=== PATIENT | female | born 1990 | race African-American/Black ===

== ENCOUNTER 2016-10-12 17:23 | Inpatient (IN) ==
[2016-10-12] MEDS ORDERED: DINOPROSTONE VAG GEL 10 MG SYRINGE VAG ONE ×2 (17:42→18:00)
[2016-10-12] MEDS ORDERED: BUTORPHANOL 2 MG/ML VIAL IV PRN (17:58)
[2016-10-12] MEDS ORDERED: MEPERIDINE 50 MG/1 ML VIAL IV PRN (17:58)
[2016-10-12] MEDS: LACTATED RINGERS 1,000 ML IV SCH ×2 (18:15→23:40)
--- NOTE | 2016-10-12 18:45 | OB/GYN History & Physical ---
History of Present Illness Chief complaint: Preeclampsia History of present illness: Ms. Mireles is a 25 year old female 25-year-old 1 para 0 who presented to clinic today with blood pressure with diastolics over 100. Since August of this patient's blood pressure diastolic has been creeping to 96 and 100 diastolic. Today's visit she was 160s over 96 and 158/104 in the office. In light of these findings she was admitted for induction of labor. She is approximately 2 cm dilated 60% at a -2 station vertex. heart tones are category 1. She will be receiving prostaglandin gel risks benefits were thoroughly discussed she is in full agreement. Home Medications Medication Instructions Recorded Confirmed Type Labetalol Tab [Trandate Tab] 200 mg PO BID 06/14/16 10/12/16 History Multivitamin () [ 1 tablet PO DAILY 06/14/16 10/12/16 History Vitamin] Ferrous Sulfate Tab [Feosol 1 tablet PO BEDTIME 09/27/16 10/12/16 History Original Tab] Folic Acid Tab 1 tablet PO DAILY 09/27/16 10/12/16 History Allergies Allergy/AdvReac Type Severity Reaction Status Date / Time No Known Allergies Allergy Verified 10/04/16 09:57 Medical,Surgical,& Family Hx - Medical History Cardio: History of: Hypertension Reproductive: History of: Abnormal Pap Smear (lsil) - Surgical History Thoracic Surgeries: Patient denies;: Organ Transplant - Family History Family History: Reports;: Family Cancer (mggm colon), Family Diabetes (mgm), Family Hypertension (mother mgm) - Social History Smoking Status: Never smoker Frequency of Alcohol Use: None Type of Drug Use: None 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 - Constitutional General appearance: no acute distress - Antepartum / Post Antepartum Exam Cervix - Dilatation: 2 cm Effacement: 60% Station: -2 - Head Head exam: Present: normal inspection - Eye Eye exam: Present: EOMI Pupils: Present: JASIEL - ENT ENT exam: Present: normal exam - Neck Neck exam: Present: normal inspection - Respiratory Respiratory exam: Present: clear to auscultation bilaterally - Breast Breasts: as per HPI Menstruation: as per HPI - Cardiovascular Cardiovascular exam: Present: regular rate and rhythm - GI/Abdominal GI/Abdominal exam: Present: normal bowel sounds - Extremities Exam Extremities exam: Present: normal inspection - Back Exam Back exam: Present: normal inspection - Psychiatric Psychiatric exam: Present: normal affect - Skin Skin exam: Present: normal color Assessment and Plan (1) Preeclampsia Status: Acute Assessment and plan: Blood pressure has not been controlled with bedrest and also on labetalol at 200 mg twice daily. Patient will be admitted prostaglandin gel be administered and epidural will be administered at appropriate place and time. Risks benefits thoroughly discussed as well as the nursery was notified. Current Visit: Yes
[2016-10-12 18:57] LABS: Basophils % 0.2 % (0.0-0.8); Eosinophils # 0.1 10*3/uL (0.0-0.87); Eosinophils % 0.7 % (0.00-10.9); Hematocrit 38.5 VOL% (35.7-47.0); Hemoglobin 12.6 GM/DL (12.0-16.0); Immature Granulocytes % 1.3 %; Immature Granulocytes Absolute 0.13 #; Lymphocytes # 1.5 10*3/uL (1.4-4.0); Lymphocytes % 15.2 % (21.3-54.2); Mean Corpuscular HGB Conc 32.7 GM/DL (32-36); Mean Corpuscular Hemoglobin 27 PG (27-34); Mean Corpuscular Volume 82.6 FL (87-102); Mean Platelet Volume 12.2 FL (9.6-12.0); Monocytes # 0.8 10*3/uL (0.11-0.8); Monocytes % 7.9 % (1.7-12.7); Neutrophils # 7.4 10*3/uL (1.4-7.4); Neutrophils % 74.7 % (38.7-73.9); Platelet Count 209 T/CUMM (130-400); Red Blood Count 4.66 MC/CUMM (3.8-5.5); Red Cell Distribution Width 15.6 % (9.3-17.3); White Blood Count 9.9 T/CUMM (4-12)
[2016-10-12 19:22] LABS: Alanine Aminotransferase 20 U/L (13-56); Albumin 2.9 G/DL (3.4-5.0); Alkaline Phosphatase 126 U/L (45-117); Aspartate Amino Transferase 18 U/L (0-37); Bilirubin,Total < 0.39 MG/DL (0.2-1.0); Blood Urea Nitrogen 6 MG/DL (7-18); Calcium 9.5 MG/DL (8.5-10.1); Glucose 87 MG/DL (74-106); Osmolality,Calculated 271.7 MOS/KG (273-304); Sodium 138 MMOL/L (136-145); Total Protein 7.4 G/DL (6.4-8.3); Uric Acid 3.4 MG/DL (2.6-6.0)
[2016-10-12 19:25] LABS: PT Patient Result 10.6 SECS; Partial Thromboplastin Time 27.4 SECS (0-40)
[2016-10-12] MEDS: LABETALOL 200 MG TABLET PO SCH (21:40)
[2016-10-13] MEDS: LACTATED RINGERS 1,000 ML IV SCH ×2 (02:16→09:36)
[2016-10-13] MEDS ORDERED: OXYTOCIN/LR 20 UNIT/1,000 ML BAG IV SCH (03:30)
--- NOTE | 2016-10-13 08:55 | Event Note ---
0850: AROM with clear fluids noted. Vaginal exam: The patient is 3-4 cm dilated 70% effaced and the vertex is presenting at a -2 station.
[2016-10-13] MEDS: LABETALOL 200 MG TABLET PO SCH (09:11)
[2016-10-13] MEDS ORDERED: fentaNYL 2 MCG/ROPIV 0.2% EPID 150 ML EPIDURAL SCH (10:24)
[2016-10-13] MEDS ORDERED: FAMOTIDINE 20 MG/2 ML VIAL IV ONE (10:24)
[2016-10-13] MEDS ORDERED: CITRIC ACID/SODIUM CITRATE 30 ML UDCUP PO ONE (10:24)
[2016-10-13] MEDS ORDERED: ePHEDrine 50 MG/ML AMP IV PRN (10:24)
[2016-10-13] MEDS ORDERED: hydrOXYzine HCL 25 MG/1 ML VIAL IM PRN (10:24)
[2016-10-13] MEDS ORDERED: diphenhydrAMINE 50 MG/1 ML VIAL IV PRN (10:24)
[2016-10-13] MEDS ORDERED: hydrALAZINE 20 MG/1 ML VIAL IV PRN (12:27)
--- NOTE | 2016-10-13 12:27 | Event Note ---
Pelvic exam demonstrated 6-7 cm 60-70% effaced at a 0 station. heart tones are category 1 no evidence of variables relates at this point time. We will continue with present therapy anticipate delivery vaginally. Blood pressures 150s over 95 she did receive a labetalol ball this morning we will give her 10 of Apresoline at this time.
[2016-10-13 12:49] LABS: Apearance,Urine CLEAR (Clear); Bacteria,Urine Occasional /HPF (Few); Bilirubin,Urine Negative (Negative); Blood, Urine Negative (Negative); Glucose,Urine (UA) Negative (Negative); Ketones,Urine 5 mg/dL (Negative); Mucus,Urine Occasional /LPF (Occasional); Nitrite,Urine Negative (Negative); Protein,Urine Negative; RBC,Urine <1 /HPF (0-4); Squamous Epithelial Cell,Urine Occasional /HPF (0-10); Urine Color Yellow (Yellow); Urine Specific Gravity 1.009 (1.001-1.035); Urine Urobilinogen < 2.0 EU/DL (0.2-1.0); WBC,Urine 1 /HPF (0-6)
--- NOTE | 2016-10-13 14:16 | Event Note ---
HPI: Patient presented for induction of labor due to preeclampsia. The risk and benefits were thoroughly discussed with the patient significant other, plan of care was discussed with Dr. Casas and all parties were in in agreement with plan. Stage I: The patient was admitted and she received Prostin gel per protocol. She was eventually started on IV Pitocin per protocol and she progressed in labor with a CAT 1 tracing. The patient also received medicines for her blood pressure. She received an epidural for pain control. Artificial rupture membranes was performed with clear fluid noted. An IUPC catheter was inserted without difficulty. The patient continued to progress with no complications. Stage II: The patient was complete and instructed to push. She pushed for approximately 10 minutes after which time the infant's head was delivered, the mouth nose suctioned on the perineum. The remainder of the was delivered at 1401. A viable male infant was noted. Apgars were 8 at 1 minute and 9 at 5 minutes. weight was 7 pounds and 4 oz. The infant was placed on the mom's abdomen for skin to skin bonding. Stage III: A spontaneous delivery of a Tim placenta with a three-vessel cord noted. The placenta was further examined. Grossly intact. The vagina cervix was inspected with a left labial abscess noted. The abscess was incised and drained and a culture was sent to pathology for further examination. Epidural anesthesia remain in effect during the I & D. The patient tolerated the procedure well. Estimated blood loss was approximately 125 cc. At the time of dictation mother and baby are both in stable condition.
[2016-10-13] MEDS ORDERED: ACETAMINOPHEN/CODEINE 300-30 MG TABLET PO PRN (14:18)
[2016-10-13] MEDS ORDERED: BENZOCAINE 20%/MENTHOL 0.5% SPRAY 56 GM CAN TOP PRN (18:20)
[2016-10-13] MEDS ORDERED: BISACODYL 10 MG SUPP RECTAL PRN (18:20)
[2016-10-13] MEDS ORDERED: MEASLES/MUMPS/RUBELLA VACCINE 0.5 ML VIAL SUBCUT ONE (18:20)
[2016-10-13] MEDS ORDERED: DIPH/TET/ACEL PERT BOOSTER VACCINE 0.5 ML VIAL IM ONE (18:20)
[2016-10-13] MEDS ORDERED: LANOLIN 50% CREAM 0.3 OZ TUBE TOP PRN (18:20)
[2016-10-13] MEDS ORDERED: ACETAMINOPHEN 325 MG TABLET PO PRN (18:20)
[2016-10-13] MEDS ORDERED: oxyCODONE/ACETAMINOPHEN 5-325 MG TABLET PO PRN ×2 (18:20)
[2016-10-13] MEDS ORDERED: ONDANSETRON 4 MG/2 ML VIAL IV PRN (18:20)
[2016-10-13] MEDS ORDERED: RHO(D) IMMUNE GLOBULIN 300 MCG SYRINGE IM ONE (18:20)
[2016-10-13] MEDS ORDERED: HYDROCORTISONE 2.5% RECTAL CREAM 30 GM TUBE TOP PRN (18:20)
[2016-10-13] MEDS ORDERED: WITCH HAZEL PADS 100/JAR TOP PRN (18:20)
[2016-10-13] MEDS ORDERED: OXYTOCIN/LR 20 UNIT/1,000 ML BAG IV ONE (18:38)
[2016-10-13] MEDS: DOCUSATE SODIUM 100 MG CAPSULE PO SCH (21:20)
[2016-10-13] MEDS: CLINDAMYCIN 300 MG CAPSULE PO SCH (21:20)
[2016-10-14] MEDS: CLINDAMYCIN 300 MG CAPSULE PO SCH ×3 (06:20→22:11)
[2016-10-14 07:43] LABS: Basophils % 0.2 % (0.0-0.8); Eosinophils # 0.1 10*3/uL (0.0-0.87); Eosinophils % 0.4 % (0.00-10.9); Hematocrit 33.2 VOL% (35.7-47.0); Hemoglobin 11.1 GM/DL (12.0-16.0); Immature Granulocytes % 1.2 %; Immature Granulocytes Absolute 0.19 #; Lymphocytes # 1.8 10*3/uL (1.4-4.0); Lymphocytes % 10.9 % (21.3-54.2); Mean Corpuscular HGB Conc 33.4 GM/DL (32-36); Mean Corpuscular Hemoglobin 27 PG (27-34); Mean Corpuscular Volume 81.4 FL (87-102); Mean Platelet Volume 11.9 FL (9.6-12.0); Monocytes # 1.5 10*3/uL (0.11-0.8); Monocytes % 9.5 % (1.7-12.7); Neutrophils # 12.6 10*3/uL (1.4-7.4); Neutrophils % 77.8 % (38.7-73.9); Platelet Count 171 T/CUMM (130-400); Red Blood Count 4.08 MC/CUMM (3.8-5.5); Red Cell Distribution Width 15.4 % (9.3-17.3); White Blood Count 16.2 T/CUMM (4-12)
[2016-10-14] MEDS: DOCUSATE SODIUM 100 MG CAPSULE PO SCH ×2 (08:50→21:12)
--- NOTE | 2016-10-14 09:00 | Anesthesia Post-Op ---
Anesthesia Post OP - Post Ansesthetic Evaluation Patient seen in post op: Yes Resp: within normal limits CV: within normal limits Mental: within normal limits Temp: within normal limits [id number]: within normal limits Nausea and Vomiting: within normal limits Pain: within normal limits
--- NOTE | 2016-10-14 12:10 | OB/GYN Progress Note ---
Assessment and Plan (1) Vaginal delivery Status: Acute Assessment and plan: Initiate routine orders. Current Visit: Yes TRANSPORTATION OFFICER - PN: Subj Interval history: Stable with no complaints. Bonding well with infant. Exam TRANSPORTATION OFFICER - Constitutional Vitals: Vital Signs Temp Pulse Resp BP Pulse Ox 10/14/16 08:38 20 10/14/16 08:00 97.8 F 92 H 20 109/69 92 L 10/14/16 04:00 97.5 F L 94 H 18 123/72 98 10/14/16 03:00 18 10/14/16 02:00 18 10/14/16 01:00 18 10/13/16 23:44 97.6 F 82 20 124/68 98 10/13/16 20:00 97.1 F L 94 H 20 154/77 98 10/13/16 18:15 98.2 F 96 H 20 139/80 97 General appearance: no acute distress - Antepartum / Post Post Exam Breast: bilateral: normal Abdomen obstetrics: Present: bowel sounds normal Vagina: Present: normal moisture, discharge (Light lochia rubra) Uterus exam: Present: enlarged (Fundus firm and) Anus/Rectum: Present: normal perianal skin - Respiratory Respiratory exam: Present: clear to auscultation bilaterally - Cardiovascular Cardiovascular exam: Present: regular rate and rhythm - GI/Abdominal GI/Abdominal exam: Present: normal bowel sounds, soft - Extremities Exam Extremities exam: Present: normal inspection - Back Exam Back exam: Present: muscle spasm, other (Back pain) - Neurological Exam Neurological exam: Present: alert, oriented X3 - Psychiatric Psychiatric exam: Present: normal affect, normal mood - Skin Skin exam: Present: normal color, warm Results - Labs CBC & BMP: 10/14/16 07:15 10/12/16 18:36
[2016-10-14] MEDS: IBUPROFEN 800 MG TABLET PO PRN (14:32)
[2016-10-15] MEDS: IBUPROFEN 800 MG TABLET PO PRN (04:36)
[2016-10-15] MEDS: CLINDAMYCIN 300 MG CAPSULE PO SCH ×2 (05:55→14:26)
[2016-10-15] MEDS: DOCUSATE SODIUM 100 MG CAPSULE PO SCH (08:21)
[2016-10-15 14:07] VITALS: BP 124/78
--- NOTE | 2016-11-06 04:47 | Discharge Summary ---
DATE OF ADMISSION: 10/12/2016 DATE OF DISCHARGE: 10/14/2016 The patient admitted for induction of labor secondary to -induced hypertension. The patient 's blood pressure was volatile and not tolerated by oral medicines. She underwent prostaglandin gel and subsequently IV Pitocin progressed to labor. She was admitted on the 10/12/16 and discharged 06/2016, delivered a male infant 7 pounds and 4 ounces. Apgars were 9 at 1 minute and 9 at 5 minutes . She remained in the hospital for two postoperative days. She received labetalol 200 mg b.i.d. pos tpartum and subsequently changed to Procardia 30 mg XL. She voided well multiple bowel movements. N o complaints at the time of discharge. Postoperative instructions were thoroughly given and she is i n full agreement.
== END 2016-10-15 14:45 | disposition home or self-care (01) | DRG 774 ==
LOC: N.LDOUT 17:23 → N.LD 17:24 → N.OB 10-13 18:09
PROVIDERS: ADMIT Obstetrics & Gynecology; ATTEND Obstetrics & Gynecology

== ENCOUNTER 2018-08-22 06:01 | Inpatient (IN) ==
[2018-08-22] MEDS ORDERED: MEPERIDINE 50 MG/1 ML VIAL IV PRN (06:08)
[2018-08-22] MEDS ORDERED: ACETAMINOPHEN 325 MG TABLET PO PRN ×2 (06:08→17:48)
[2018-08-22] MEDS ORDERED: ONDANSETRON 4 MG/2 ML VIAL IV PRN (06:08)
[2018-08-22] MEDS ORDERED: BUTORPHANOL 2 MG/ML VIAL IV PRN (06:08)
[2018-08-22 06:29] LABS: Basophils % 0.3 % (0.0-0.8); Eosinophils # 0.1 10*3/uL (0.0-0.87); Hemoglobin 12.7 GM/DL (12.0-16.0); Immature Granulocytes % 1.1 %; Immature Granulocytes Absolute 0.11 #; Lymphocytes # 1.9 10*3/uL (1.4-4.0); Lymphocytes % 18.7 % (21.3-54.2); Mean Corpuscular HGB Conc 30.2 GM/DL (32-36); Mean Corpuscular Volume 85.2 FL (87-102); Mean Platelet Volume 10.9 FL (9.6-12.0); Monocytes % 8.1 % (1.7-12.7); Neutrophils % 70.8 % (38.7-73.9); Platelet Count 195 T/CUMM (130-400); Red Blood Count 4.93 MC/CUMM (3.8-5.5); Red Cell Distribution Width 15.3 % (9.3-17.3); White Blood Count 10.1 T/CUMM (4-12)
[2018-08-22] MEDS: LACTATED RINGERS 1,000 ML IV SCH ×2 (06:32→09:59)
[2018-08-22 06:46] LABS: Alanine Aminotransferase 22 U/L (13-56); Albumin 2.8 G/DL (3.4-5.0); Alkaline Phosphatase 144 U/L (45-117); Aspartate Amino Transferase 18 U/L (0-37); Bilirubin,Total < 0.39 MG/DL (0.2-1.0); Blood Urea Nitrogen 4 MG/DL (7-18); Calcium 8.8 MG/DL (8.5-10.1); Glucose 89 MG/DL (74-106); Osmolality,Calculated 270.7 MOS/KG (273-304); Total Protein 6.8 G/DL (6.4-8.3)
[2018-08-22] MEDS: OXYTOCIN/LR 20 UNIT/1,000 ML BAG IV SCH ×2 (07:49→17:40)
[2018-08-22] MEDS ORDERED: diphenhydrAMINE 50 MG/1 ML VIAL IV PRN ×2 (08:11)
[2018-08-22] MEDS ORDERED: PROMETHAZINE 25 MG/1 ML VIAL IM ONE (08:11)
[2018-08-22] MEDS ORDERED: NALOXONE 0.4 MG/ML VIAL IV PRN (08:11)
[2018-08-22] MEDS ORDERED: FAMOTIDINE 20 MG/2 ML VIAL IV ONE (08:11)
[2018-08-22] MEDS ORDERED: CITRIC ACID/SODIUM CITRATE 30 ML UDCUP PO ONE (08:11)
[2018-08-22] MEDS ORDERED: hydrOXYzine HCL 25 MG/1 ML VIAL IM PRN (08:11)
[2018-08-22] MEDS ORDERED: ONDANSETRON 4 MG/2 ML VIAL IV ONE (08:11)
[2018-08-22] MEDS ORDERED: ePHEDrine 50 MG/ML AMP IV PRN (08:11)
[2018-08-22] MEDS ORDERED: fentaNYL 2 MCG/ROPIV 0.2% EPID 100 ML EPIDURAL SCH (08:30)
[2018-08-22 11:22] LABS: Apearance,Urine CLEAR (Clear); Bacteria,Urine Occasional /HPF (Few); Bilirubin,Urine Negative (Negative); Blood, Urine Negative (Negative); Glucose,Urine (UA) Negative (Negative); Ketones,Urine Negative (Negative); Mucus,Urine Occasional /LPF (Occasional); Nitrite,Urine Negative (Negative); Protein,Urine Negative; RBC,Urine 4 /HPF (0-4); Squamous Epithelial Cell,Urine Occasional /HPF (0-10); Urine Color Yellow (Yellow); Urine Specific Gravity 1.008 (1.001-1.035); Urine Urobilinogen < 2.0 EU/DL (0.2-1.0); WBC,Urine 1 /HPF (0-6)
[2018-08-22] MEDS ORDERED: LIDOCAINE 1% 50 ML VIAL ONE (13:00)
[2018-08-22] MEDS ORDERED: miSOPROStol 200 MCG TABLET ONE (13:00)
[2018-08-22] MEDS ORDERED: METHYLERGONOVINE 0.2 MG/1 ML AMP ONE (13:00)
[2018-08-22] MEDS ORDERED: CARBOPROST TROMETHAMINE 250 MCG/ML AMP IM ONE (13:01)
[2018-08-22] MEDS ORDERED: DIPH/TET/ACEL PERT BOOSTER VACCINE 0.5 ML VIAL IM ONE (17:48)
[2018-08-22] MEDS ORDERED: ACETAMINOPHEN/CODEINE 300-30 MG TABLET PO PRN (17:48)
[2018-08-22] MEDS ORDERED: MEASLES/MUMPS/RUBELLA VACCINE 0.5 ML VIAL SUBCUT ONE (17:48)
[2018-08-22] MEDS ORDERED: BISACODYL 10 MG SUPP RECTAL PRN (17:48)
[2018-08-22] MEDS ORDERED: HYDROCORTISONE 2.5% RECTAL CREAM 30 GM TUBE TOP PRN (17:48)
[2018-08-22] MEDS ORDERED: oxyCODONE/ACETAMINOPHEN 5-325 MG TABLET PO PRN (17:48)
[2018-08-22] MEDS ORDERED: RHO(D) IMMUNE GLOBULIN 300 MCG SYRINGE IM ONE (17:48)
[2018-08-22] MEDS ORDERED: BENZOCAINE 20%/MENTHOL 0.5% SPRAY 56 GM CAN TOP PRN (17:48)
[2018-08-22] MEDS ORDERED: LANOLIN 50% CREAM 0.3 OZ TUBE TOP PRN (17:48)
[2018-08-22] MEDS ORDERED: WITCH HAZEL PADS 100/JAR TOP PRN (17:48)
[2018-08-22] MEDS: DOCUSATE SODIUM 100 MG CAPSULE PO SCH (21:15)
[2018-08-23] MEDS: IBUPROFEN 800 MG TABLET PO PRN ×3 (01:14→17:03)
[2018-08-23 04:56] LABS: Basophils % 0.3 % (0.0-0.8); Eosinophils # 0.1 10*3/uL (0.0-0.87); Eosinophils % 0.9 % (0.00-10.9); Hematocrit 36.6 VOL% (35.7-47.0); Hemoglobin 11.7 GM/DL (12.0-16.0); Immature Granulocytes % 0.6 %; Immature Granulocytes Absolute 0.09 #; Lymphocytes # 1.9 10*3/uL (1.4-4.0); Lymphocytes % 12.7 % (21.3-54.2); Mean Corpuscular Volume 81.7 FL (87-102); Mean Platelet Volume 11.5 FL (9.6-12.0); Monocytes % 8.2 % (1.7-12.7); Neutrophils % 77.3 % (38.7-73.9); Platelet Count 174 T/CUMM (130-400); Red Blood Count 4.48 MC/CUMM (3.8-5.5); Red Cell Distribution Width 15.1 % (9.3-17.3); White Blood Count 14.9 T/CUMM (4-12)
[2018-08-23] MEDS: oxyCODONE/ACETAMINOPHEN 5-325 MG TABLET PO PRN ×2 (07:51→17:03)
[2018-08-23] MEDS: DOCUSATE SODIUM 100 MG CAPSULE PO SCH ×2 (08:00→19:32)
[2018-08-24] MEDS: oxyCODONE/ACETAMINOPHEN 5-325 MG TABLET PO PRN ×2 (00:24→08:05)
[2018-08-24] MEDS: IBUPROFEN 800 MG TABLET PO PRN ×2 (00:24→08:05)
[2018-08-24] MEDS: DOCUSATE SODIUM 100 MG CAPSULE PO SCH ×2 (01:59→08:05)
[2018-08-24 11:51] VITALS: BP 113/78
== END 2018-08-24 13:20 | disposition home or self-care (01) | DRG 807 ==
LOC: N.LDOUT 06:01 → N.LD 06:08 → N.OB 17:48
PROVIDERS: ADMIT Obstetrics & Gynecology; ATTEND Obstetrics & Gynecology